=== PATIENT | female | born 1980 | race Caucasian/White ===

== ENCOUNTER 2024-05-01 12:48 | Emergency (ER) | payer MEDICAID, SELFPAY ==
--- NOTE | ~2024-05-01 | CT_ITS ---
EXAMINATION: CT cervical spine wo con DATE: 05/01/2024 15:06 INDICATION: Trauma TECHNIQUE: Computed tomography (CT) of the cervical spine was performed without intravenous contrast. Automated exposure control and iterative reconstruction technique were employed. The dose-length pro duct was 174.37 mGy-cm. COMPARISON: None FINDINGS: Alignment is normal. No fracture. Moderate osteoarthritis at the atlantoaxial articulation. Increased lucency between thickened vertical oriented trabecula throughout the C7 vertebral body most consiste nt with a hemangioma. Disc heights are relatively preserved throughout the cervical spine. Mild disc height loss at T3-T4 and T4-T5. There is multilevel mild to moderate cervical facet and uncovertebral osteoarthritis but without significant neural foraminal stenosis. Disc bulge contributing to mild ce ntral canal stenosis at C3-C4. Cervical soft tissues are unremarkable. IMPRESSION: 1. Minimal cervical spondylosis with mild to moderate cervical facet and uncovertebral osteoarthritis . No acute osseous abnormality. Reviewed, dictated and finalized at location A. IMPRESSION: 1. Minimal cervical spondylosis with mild to moderate cervical facet and uncove rtebral osteoarthritis. No acute osseous abnormality.
--- NOTE | ~2024-05-01 | CT_ITS ---
EXAMINATION: CT diagnostic chest wo con DATE: 05/01/2024 15:06 INDICATION: r rib pain, trauma TECHNIQUE: Computed tomography (CT) of the chest was performed without intravenous contrast. Addition al 3D reconstructions utilizing coronal maximum intensity projection (MIP) were performed. Automated exposure control and iterative reconstruction technique were employed. The dose-length product was 14 6.80 mGy-cm. COMPARISON: None FINDINGS: Tiny left pleural effusion. Linear bands of discoid atelectasis/scarring in the bilateral lower lobes and in the lingula. No pneumonia, pulmonary edema or pneumothorax. Heart size is normal. No pericard ial effusion. Thoracic aorta is normal in caliber. No pathologically enlarged thoracic lymphadenopath y. Cholecystectomy clips at the gallbladder fossa. There are couple diverticula along the proximal de scending colon without adjacent inflammatory stranding to suggest diverticulitis. Mild thoracic dextr ocurvature with mild spondylosis. Chronic appearing mild anterior wedging at T7. Possible age-indeter minate subtle nondisplaced fracture of the anterior left fourth rib. IMPRESSION: 1. Possible age-indeterminate subtle nondisplaced fracture of the anterior left fourth rib with tiny left pleural effusion but no pneumothorax. 2. Mild discoid atelectasis in bilateral lower lungs which could be due to splinting.. Reviewed, dictated and finalized at location A. IMPRESSION: 1. Possible age-indeterminate subtle nondisplaced fracture of the anterior left fourth rib with tiny left pleural effusion but no pneumothorax. 2. Mild discoid atelectasis in bilateral lower lungs which could be due to spli nting..
--- NOTE | ~2024-05-01 | CT_ITS ---
CT brain wo con Ordering provider: Noam Lopez MD History: 44 years Female with . trauma . Comparison: None. Technique: CT of the head without contrast. Radiation reduction technique utilized The dose-length product was 605.33 mGy-cm. FINDINGS: BRAIN PARENCHYMA AND CSF SPACES: Mild leukoaraiosis and diffuse cortical atrophy. Mild atheromatous d isease. No midline shift, mass effect or hemorrhage. The brain parenchyma and CSF spaces are otherwi se normal. VISUALIZED PARANASAL SINUSES: Right maxillary sinus disease. Otherwise, Well aerated. MASTOIDS: Well aerated. BONES: The bones appear intact. SOFT TISSUES: Visualized nasopharynx is normal. Superficial soft tissues are normal. IMPRESSION: No acute intracranial findings. Reviewed, dictated and finalized at location A.
[2024-05-01 13:23] VITALS: BP 101/75; PULSE 72; RESP 17; TEMP 36.8; O2SAT 98
--- OUTSIDE RECORDS SUMMARY | 2024-05-01 15:06 | XMS_ITS | Clinical Summary ---
Author Organization [facility] Address [facility] [place] [address] Care Team Providers Care Clinical Nursing Professor Name Role Phone None, Provider MD Primary Care Provider Unavaila ble Allergies No known active allergies Medications methylPREDNISol PAUL costa, (MEDROL DOSEPAK) 4 MG tablet MEDROL dose pack as directed 1 each 10/02/2023 Active Social History Tobacco Use Types Packs/Day Years Used Date Smoking Tobacco: Never Passive Smoke Exposure: Never Smokeless Tobacco: Never Tobacco Cessation:Counseling Given: Not Answered Alcohol Use Standard Drinks/Week Comments Yes 0 (1 standard drink = 0.6 oz pur e alcohol) socially Comments No Sex and Gender Information Value Date Recorded Sex Assigned at Not on file Legal Sex Female 1:42 PM CDT Gender Identity Not on file Sexual Orientation Not on file Last Filed Vital Signs Vital Sign Reading Time Taken Comments Blood Pressure 131/87 10/02/2023 10:39 PM CDT Pulse 84 10/02/2023 10:39 PM CDT Temperature 36.2 C (97.1 F) 10/02/2023 7:42 PM CDT Respiratory Rate 18 10/02/2023 10:3 9 PM CDT Oxygen Saturation 98% 10/02/2023 10: 39 PM CDT Inhaled Oxygen Concentration - - Weight 63.5 kg (139 lb 15.9 oz) 10/02/2023 7:42 PM CDT Height 157.5 cm (5' 2 ) 10/02/2023 7:42 PM CDT Body Mass Index 25.6 10/02/2023 7:42 PM CDT Plan of Treatment Health Maintenance Due Date Last Done Comments Cervical Cancer Screening Pa p Smear (Age 30 to 64) Every 3 Years 1978 Colorectal Cancer Screening Colonoscopy (10 Years) 1978 Annual Physical 1981 Hepatitis C 02/28/1996 DTaP, Tdap and Td Vaccines ( 1 - Tdap) 1997 Hepatitis B Vaccines (1 of 3 - 19+ 3-dose series) 1997 Cervical Cancer Screening David billingsley with HPV Testing (Age 30 to 64) Every 5 Years 02/28/2008 Cervical Cancer Screening with HPV 02/28/2008 Mammogram Screening 2018 COVID-19 Vaccine ( - 2023-2 5 season) 2023 Influenza Adult (#1) 2023 HPV Vaccines Aged Out No longer eligi ble based on patient's age to complete this topic Meningococcal B Vaccine Aged Out No l onger eligible based on patient's age to complete this topic Meningococcal Vaccine Aged Out No diego yosef eligible based on patient's age to complete this topic Pneumococcal Vaccine: Pediat rics (0 to 5 Years) and At-Risk Patients (6 to 64 Years) Aged Out No longer eligible b ased on patient's age to complete this topic RSV Immunizations Under 20 Months Aged Out No longer eligible based on patient's age to complete this topic Insurance Care Teams Clinical Nursing Professor Relationship Specialty Start Date End Date None, Provider, PCP - General UNKNOWN PHYSICIAN SPECIALTY 10/02/23
--- NOTE | 2024-05-01 15:22 | ED.GENADULT ---
HPI - General Adult General Chief complaint: Fall Stated complaint: fall , c/o SOB and rib pain Time Seen by Provider: 05/01/24 14:37 History of Present Illness HPI narrative: 44-year-old female presented emergency department for evaluation for head injury and left-sided chest wall tenderness after having a ground level fall on . Patient reports she was carrying groceries and tripped over a sidewalk causing her to fall forward. Patient did strike her head but had no loss of consciousness. Patient does have increased pain with deep inspiration. Patient describes anterior chest wall pain and left lateral chest wall pain. Patient has worsening pain with deep inspiration, no ecchymosis, no deformity on chest wall. Patient does have some ecchymosis to forehead and abrasion to the right forearm. Related Data Allergies Allergy/AdvReac Type Severity Reaction Status Date / Time No Known Allergies Allergy Verified 05/01/24 14:44 Review of Systems Review of Systems: All systems reviewed & are unremarkable except as noted in HPI and below Exam Narrative: APPEARANCE: Well appearing, no pain, no distress, well-nourished. HEAD: normocephalic, atraumatic. EYES: PERRLA/EOMI, conjunctivae clear. NOSE: Normal no drainage EARS:TMS clear with good light reflex. THROAT: Pharynx clear, no exudate. NECK: Supple. No adenopathy, no masses. RESPIRATORY: Airway patent, respirations nonlabored. Clear to auscultation bilaterally, no rales, rhonchi, wheezing. CARDIOVASCULAR: Regular rate and rhythm without murmurs rubs or gallops. ABDOMINAL: Soft, nontender, nondistended, normal bowel sounds MUSCULOSKELETAL: Left-sided chest wall tenderness to palpation with no evidence of ecchymosis NEURO: Alert. Cranial nerves II through XII intact. Grossly intact SKIN: Warm, dry. Normal Color Course Vital Signs Vital signs: Vital Signs Temperature 98.2 F 05/01/24 13:23 Pulse Rate 72 05/01/24 13:23 Respiratory Rate 17 05/01/24 13:23 Blood Pressure 101/75 05/01/24 13:23 Pulse Oximetry 98 05/01/24 13:23 Oxygen Delivery Room Air 05/01/24 13:23 Temperature 98.5 F 05/01/24 17:09 Pulse Rate 60 05/01/24 17:09 Respiratory Rate 16 05/01/24 17:09 Blood Pressure 142/85 H 05/01/24 17:09 Pulse Oximetry 96 05/01/24 17:09 Oxygen Delivery Room Air 05/01/24 13:23 Medical Decision Making MDM Narrative Medical decision making narrative: 44-year-old female presenting to the emergency department for evaluation for left-sided rib pain and a head injury after having a ground level fall. CT head neck were negative for acute injury and patient's CT chest did show a subtle nondisplaced fracture of the anterior left fourth rib with tiny left pleural effusion but no pneumothorax. Patient was provided medication for pain control. Patient was provided incentive spirometer. Patient was educated on reasons to return to the emergency department. All questions concerns were addressed Differential Diagnosis Differential Diagnosis: Subdural hematoma, subarachnoid hemorrhage, facial fracture, rib fracture, pneumothorax Vital Signs Vital Signs: Vital Signs Temperature 98.2 F 05/01/24 13:23 Pulse Rate 72 05/01/24 13:23 Respiratory Rate 17 05/01/24 13:23 Blood Pressure 101/75 05/01/24 13:23 Pulse Oximetry 98 05/01/24 13:23 Oxygen Delivery Room Air 05/01/24 13:23 Temperature 98.5 F 05/01/24 17:09 Pulse Rate 60 05/01/24 17:09 Respiratory Rate 16 05/01/24 17:09 Blood Pressure 142/85 H 05/01/24 17:09 Pulse Oximetry 96 05/01/24 17:09 Oxygen Delivery Room Air 05/01/24 13:23 Imaging Data Radiologist's impression: Impressions Head CT 05/01/24 15:09 IMPRESSION: No acute intracranial findings. Cervical Spine CT 05/01/24 15:19 IMPRESSION: 1. Minimal cervical spondylosis with mild to moderate cervical facet and uncovertebral osteoarthritis. No acute osseous abnormality. Chest CT 05/01/24 15:23 IMPRESSION: 1. Possible age-indeterminate subtle nondisplaced fracture of the anterior left fourth rib with tiny left pleural effusion but no pneumothorax. 2. Mild discoid atelectasis in bilateral lower lungs which could be due to splinting.. Discharge Plan Discharge Clinical Impression: Head injury, Closed rib fracture Patient Disposition: Home, Self-Care Condition: Stable Instructions: Antibiotic Form, How to Use an Incentive Spirometer (ED), Rib Fracture (ED), Head Injury (ED) Additional Instructions: Ibuprofen for pain control. Flexeril for muscle spasm. [place] as needed for additional pain control. Incentive spirometer as directed to help ensure your taking deep breath. Have close follow-up with your primary care physician P Patient Language: South Korean Prescriptions: New hydrocodone-acetaminophen 5-325 mg tablet 1 tablet PO Q12H PRN (Reason: pain) Qty: 14 0RF cyclobenzaprine 10 mg tablet 10 mg PO BID PRN (Reason: muscle spasm) Qty: 14 0RF Follow-up/Referrals: UNKNOWN,DOCTOR [Primary Care Provider] -
[2024-05-01] MEDS: CYCLOBENZAPRINE HCL 10 MG TABLET PO (15:38)
[2024-05-01] MEDS: HYDROcodone/acetaminophen (*CRX) 5-325 MG TABLET 1 TAB PO (15:38)
[2024-05-01 17:09] VITALS: BP 142/85; PULSE 60; RESP 16; TEMP 36.9; O2SAT 96
--- OUTSIDE RECORDS SUMMARY | 2024-05-01 17:33 | XMS_ITS | Clinical Summary ---
Author Organization [facility] Address [facility] [place] [address] Care Team Providers Care Director Of Industrial Relations Name Role Phone None, Provider MD Primary [...] to complete this topic Insurance Care Teams Director Of Industrial Relations Relationship Specialty Start Date End Date None, Provider, PCP - General UNKNOWN PHYSICIAN SPECIALTY 10/02/23
== END 2024-05-01 17:11 | disposition home or self-care (01) ==
PROVIDERS: Emergency Provider Emergency Medicine
DX: S09.90XA Unspecified injury of head, initial encounter (principal); S22.32XA Fracture of one rib, left side, initial encounter for closed fracture; W01.0XXA Fall on same level from slipping, tripping and stumbling without subsequent striking against object, initial encounter
CPT/HCPCS: 70450; 71250; 72125; 99284; A9270

== ENCOUNTER 2024-07-20 09:57 | Outpatient (CLI) | payer MEDICAID, SELFPAY ==
--- NOTE | ~2024-07-20 | MM_ITS ---
EXAMINATION: MM screening lexie BI w yamileth HISTORY: Screening TECHNIQUE: Craniocaudal and mediolateral oblique 3-D tomosynthesis images were obtained and synthetic 2-D images were generated. CAD analysis was submitted and interpreted. COMPARISON: Baseline BREAST PARENCHYMAL COMPOSITION: There are scattered areas of fibroglandular density. FINDINGS: There is no evidence of suspicious mass, calcification, or architectural distortion to sugg est malignancy in either breast. IMPRESSION: 1. No mammographic evidence of malignancy. 2. Recommend routine screening mammography in one year. BI-RADS Category 1: Negative Reviewed, dictated and finalized at location B.
== END 2024-07-20 09:58 | disposition home or self-care (01) ==
LOC: MICIMG 09:58
PROVIDERS: PCP Physician Assistant; Visit Provider Physician Assistant
DX: Z12.31 Encounter for screening mammogram for malignant neoplasm of breast (principal)
CPT/HCPCS: 77063; 77067

== ENCOUNTER 2024-08-25 10:15 | Outpatient (RCR) | payer MEDICAID, SELFPAY ==
--- NOTE | 2024-07-14 09:09 | OTOPEVAL1 ---
Assessment and note entered by Reese Lozano, ANDREW/Ravi, CHT OT Evaluation Information 07/14/24 Assessment Status Evaluation Diagnosis Pain in right hand, Pain in left hand Subjective Information Patient reports experiencing progressive pain in bilateral hands. She reports a functional decline in her ability to write, cook (cutting/chopping), writing, opening a jar, and folding laundry. She reports she has tried to find ways around using her hands because of the pain. She has shooting pains in her hands daily with use. She uses ice most days/multiple times a week. She reports her hand pain gets up to 10/10 4-5 times a week. She works several jobs, works 7 days/week. 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 Difficulties with grabbing [employer] bags, she has to put the bags on her arms. She wears compression gloves for relief. Reported Pain Level Pain Score 5: Self Report Assessment OT Clinical Summary Patient referred to OT with bilateral hand pain. 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 She also has a positive upper limb tension test for the ulnar nerve on the right, issued nerve glides. Continued follow up indicated for fabrication of hand based thumb spica orthotics to support and rest the CMC joints with activity. Skilled OT also indicated for joint protection education, use of modalities, manual therapy, therapeutic exercise, and HEP progression to facilitate reduced pain and improved functional use of B UEs. Plan of Care Interventions Therapeutic Exercise,Manual Therapy,Neuro Re- education,Therapeutic Activities,Hot Pack/Cold Pack,Self-Care/Home Management,Check Out for Orthotic/Prosthetic,Ultrasound,Paraffin OT Services Indicated Yes Treatment Frequency and 1x/week for 6 visits Duration These treatments will address the objective and functional deficits as defined above. The patient will be advanced safely and appropriately in order for the patient to progress towards his/her prior level of function. Additional exercises will be introduced and as well as a comprehensive home exercise program upon discharge, if needed, ?to ensure carryover of functional gains achieved in the clinic. This treatment plan has been reviewed and agreement upon by the patient.
--- NOTE | 2024-07-14 09:11 | OPREHPOC ---
Outpatient Therapy Plan of Care This is a Multidisciplinary Plan of Care that may contain components documented by all disciplines (PT, OT, and ST.) OT Problem 1 OT Problem #1 Knowledge Deficit OT Goal 1 Goal / Goal Update 1. Patient to be independent with instructed materials. Target Visit 6 OT Problem 2 OT Problem #2 Pain OT Goal 1 Goal / Goal Update 1. Patient to report reduced bilateral hand pain to 2/10 or less with ADLs. 2. Patient to report reduced bilateral hand pain as measured by reporting no instances of 10/10 pain in the last 7 days. Target Visit 6 OT Problem 3 OT Problem #3 Impaired Strength OT Goal 1 Goal / Goal Update 1. Patient to improve functional wrist strength for ADLs and work tasks as measured by being able to progress to wrist strengthening program with 2 lb. free weights 2x15 reps without pain. 2. Patient to improve functional blood donor recruiter supervisor strength for ADLs and work tasks as measured by being able to progress to yellow putty for blood donor recruiter supervisor and pinch strengthening x5 minutes with 2/10 pain or less. Target Visit 6
--- NOTE | 2024-08-21 11:56 | PCOTNOTE ---
Patient did not show up for scheduled appointment this date. Called patient and left voicemail regarding missed appointment.
--- NOTE | 2024-08-25 11:03 | OTOPDC ---
Assessment and note entered by Reese Lozano, OTR/L, ANSELMOT OT D/C Summary 08/25/24 Assessment Status Discharge Diagnosis Pain in right hand, Pain in left hand ICD-10 Condition Codes (OT) Pain in right hand M79.641,Pain in left hand M79. 642 Subjective Information Patient reports she has made excellent progress with her hand pain. She reports her overall quality of life has improved now that she is functioning with less pain. She reports less pain with her ability to write (for short periods of time), cook (cutting/chopping), opening a jar, and folding laundry. She reports the thumb orthotics and the exercises have helped her a lot. She reports she is more mindful of her hand/thumb use and using better body mechanics with ADLs. She reports she is feeling stronger, but does note that she has a ways to go with building more strength. She reports no longer experiencing daily shooting pains. Reported Pain Level Pain Score 1/10 (R) thumb 0/10 (L) thumb Assessment OT Clinical Summary Patient referred to OT with bilateral hand pain. 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 She has progressed to no longer experiencing pain with wrist and thumb active ROM. She has progressed to being able to complete gentle clerk supervisor/ pinch strengthening. She is independent with thumb orthotic use for CMC support and rest during ADLs . She was able to complete clerk supervisor and pinch strength assessments today with little to no pain, compared to 5/10 pain at the start of care. Her strength is progressing and she is independent with strengthening program. No further skilled OT indicated at this time. D/C OT. Plan of Care OT Services Indicated No
== END 2024-08-25 14:13 | disposition home or self-care (01) ==
LOC: ANHOT 10:15
PROVIDERS: PCP Physician Assistant; Visit Provider Physician Assistant
DX: M79.642 Pain in left hand (principal); M79.641 Pain in right hand
CPT/HCPCS: 97018; 97110; 97140; 97166; L3913

== ENCOUNTER 2024-12-02 19:25 | Emergency (ER) | payer OTHER, SELFPAY ==
--- NOTE | ~2024-12-02 | CT_ITS ---
EXAMINATION: CT brain wo con DATE: 12/02/2024 21:08 INDICATION: Head injury. TECHNIQUE: Computed tomography (CT) of the head was performed without intravenous contrast. The mA was adjusted according to patient size. Iterative reconstruction technique was employed. The dose-length product was 605.33 mGy-cm. COMPARISON: Head CT 05/01/2024 FINDINGS: There is no intracranial hemorrhage, acute infarction, or abnormal intracranial mass lesion. The ventricles are normal in size. The orbits are normal. There is mild mucosal thickening in the ethmoid sinuses. The mastoid air cells are normal. IMPRESSION: 1. Normal brain. Reviewed, dictated and finalized at location E. IMPRESSION: 1. Normal brain.
[2024-12-02 19:27] VITALS: BP 152/87; PULSE 62; RESP 20; TEMP 36.6; O2SAT 99
--- NOTE | 2024-12-02 20:10 | ED_ITS ---
HPI - Head Injury General Chief complaint: Head Injury Stated complaint: head injury Time Seen by Provider: 12/02/24 19:53 Source: patient Mode of arrival: ambulatory Limitations: no limitations History of Present Illness HPI Narrative: This is a 44-year-old female that presents to the ER after a head injury. Reports she was hit on the top of her head with her car door. This happened earlier today. Since she has had a headache, nausea, dizziness. Presents for further evaluation. Denies vision changes, vomiting, numbness, weakness. Related Data Allergies Allergy/AdvReac Type Severity Reaction Status Date / Time No Known Allergies Allergy Verified 12/02/24 19:35 Review of Systems Review of Systems: All systems reviewed & are unremarkable except as noted in HPI and below Exam Narrative: GENERAL: Well-appearing, well-nourished, and in no acute distress. HEAD: Normocephalic, atraumatic. EYES: PERRLA and EOMI. ENT: Nares clear, no rhinorrhea or epistaxis. Mucous membranes moist. Oropharynx without tonsillar hypertrophy exudate or other lesions. Bilateral TMs pearly amador non-bulging NECK: Supple. No adenopathy or masses. CHEST: Clear to auscultation. No respiratory distress. No wheezes rales or rhonchi HEART: Regular rate and rhythm. No murmur heard. Normal peripheral pulses. ABDOMEN: Soft, nontender, nondistended, normal active bowel sounds. EXTREMITIES: Normal range of motion. No edema. Strength equal in bilateral upper and lower extremities (5/5) SKIN: Warm, dry, no rash. NEURO: No focal deficits. Alert and oriented x3. CN II-XII grossly intact PSYCH: Normal mood and affect Course Vital Signs Vital signs: Vital Signs Temperature 97.9 F 12/02/24 19:27 Pulse Rate 62 12/02/24 19:27 Respiratory Rate 20 12/02/24 19:27 Blood Pressure 152/87 H 12/02/24 19:27 Pulse Oximetry 99 12/02/24 19:27 Oxygen Delivery Room Air 12/02/24 19:27 Temperature 97.9 F 12/02/24 19:27 Pulse Rate 62 12/02/24 19:27 Respiratory Rate 20 12/02/24 19:27 Blood Pressure 152/87 H 12/02/24 19:27 Pulse Oximetry 99 12/02/24 19:27 Oxygen Delivery Room Air 12/02/24 19:27 MDM - Head Injury MDM Narrative Medical decision making narrative: Patient presents the emergency department after a patient injury today. She is neurologically intact. CT brain without acute findings. Patient instructed on further care per caution. She is to follow up with provider. She was given warnings to return to the ER Differential Diagnosis Differential diagnosis: Likely concussion without loss of consciousness, closed head injury and subdural hematoma Imaging Data Radiologist's impression: CT brain: No evidence of acute intracranial abnormality. No ICH, mass effect or edema. No skull fracture Critical Care Time Critical Care Time Critical Care Time: No Discharge Plan Discharge Clinical Impression: Closed head injury Qualifiers: Encounter type: initial encounter Qualified Code(s): S09.90XA - Unspecified injury of head, initial encounter Patient Disposition: Home Condition: Stable Instructions: Head Injury (ED) Additional Instructions: Return to the emergency department if you experience vision changes, vomiting, weakness, numbness, or any other symptoms that are concerning to you. Rest. Ice to the area. Tylenol or Ibuprofen as needed for pain Follow up with your primary care doctor Patient Language: Belarusian Prescriptions: No Action hydrocodone-acetaminophen 5-325 mg tablet 1 tablet PO Q12H PRN (Reason: pain) Qty: 14 0RF cyclobenzaprine 10 mg tablet 10 mg PO BID PRN (Reason: muscle spasm) Qty: 14 0RF Follow-up/Referrals: Donald,KATHRYN Byers [Primary Care Provider, Unknown]
[2024-12-02] MEDS: ACETAMINOPHEN 500 MG TABLET 1000 MG PO (20:29)
[2024-12-02 21:29] VITALS: BP 143/92; PULSE 72; RESP 18; O2SAT 99
== END 2024-12-02 21:30 | disposition home or self-care (01) ==
PROVIDERS: Emergency Provider Physician Assistant; PCP Physician Assistant
DX: S09.90XA Unspecified injury of head, initial encounter (principal); W22.8XXA Striking against or struck by other objects, initial encounter
CPT/HCPCS: 70450; 99284; A9270